=== PATIENT | female | born 1955 | race Caucasian/White ===

== ENCOUNTER → 2017-04-15 | Outpatient (CLI) | payer OTHER | LOC: CIMAGING 13:01 | PROVIDERS: ATTEND Physician Assistant Medical | DX: M41.85 Other forms of scoliosis, thoracolumbar region (principal); M81.0 Age-related osteoporosis without current pathological fracture | CPT/HCPCS: 72114-PO ==

== ENCOUNTER → 2017-12-06 | Outpatient (CLI) | payer OTHER | LOC: CIMAGING 15:40 | PROVIDERS: ATTEND Family Medicine | DX: Z47.1 Aftercare following joint replacement surgery (principal); R10.32 Left lower quadrant pain; Z96.642 Presence of left artificial hip joint | CPT/HCPCS: 73502-PO ==